=== PATIENT | male | born 1975 | race Asian ===

== ENCOUNTER 2020-06-24 11:16 | Day surgery (SDC) | payer OTHER ==
[2020-06-22 09:13] VITALS: BMI 29.0
--- OUTSIDE RECORDS SUMMARY | 2020-06-24 14:53 | XMS ---
:1975 Demographics Address [address] [place] [address] Mobile Phone Preferred Language en-US Marital Status Declined to Specify Mosque Affiliation [employer] Declined to Specify Author Organization [facility] Support Name Relationship Address Phone SE Unavailable Unavailable Unavailable JUDI ANDRADE [address] [place] [address] Re-disclosure Warning The records that you are about to access may contain information from federally- assisted alcohol or drug abuse programs. If such information is present, then the following federally mandated warning applies: This information has been disclosed to you from records protected by federal confidentiality rules (42 CFR part 2). The federal rules prohibit you from making any further disclosure of this information unless further disclosure is expressly permitted by the written consent of the person to whom it pertains or as otherwise permitted by 42 CFR part 2. A general authorization for the release of medical or other information is NOT sufficient for this purpose. The Federal rules restrict any use of the information to criminally investigate or prosecute any alcohol or drug abuse patient.The records that you are about to access may contain highly sensitive health information, the redisclosure of which is protected by Article 27-F of the [facility] Public Health law. If you continue you may haveaccess to information: Regarding HIV / AIDS; Provided by facilities licensed or operated by the [facility] Office of Mental Health; or Provided by the [facility] Office for People With Developmental Disabilities. If such information is present, then the following [facility] mandated warning applies: This information has been disclosed to you from confidential records which are protected by state law. State law prohibits you from making any further disclosure of this information without the specific written consent of the person to whom it pertains, or as otherwise permitted by law. Any unauthorized further disclosure in violation of state law may result in a fine or fpc sentence or both. A general authorization for the release of medical or other information is NOT sufficient authorization for further disclosure. Insurance Providers Payer name Policy type Policy ID Covered Covered alliance party's Policy P tana / Coverage alliance party ID relationship to [employer] Inf ormation type parker HIP O [id number] SP [id number] 1 EMBLEM [id number] HEALTH VIP 1 (HMO) HIP O [id number] SP [id number] 01 1 Problems, Conditions, and Diagnoses Code Display Name Description Problem Type Effective Dates Data Source(s) D64.9 Anemia, ANEMIA, Problem 06/09/2020 [facility] ([facility] unspecified UNSPECIFIED 12:00:00 AM EDT [facility], ) Surgeries/Procedures Procedure Description Date Indications Data Source(s) Documentation of current 06/09/2020 [facility] ([facility] medications (procedure) 12:00:00 AM EDT [facility]) BRIEF COMMUNICATION 06/09/2020 [email or web address] AM [facility], ) Results ID Date Data Source [id number] 06/21/2020 10:04:00 AM EDT [facility] Name Value Range Interpretation Description Data Sup porting Code Source(s) Document(s ) SARS [facility] coronavirus 2 RNA This lab was ordered by JAYDEN pani[facility] and reported by [facility]. ID Date Data Source [id number] 06/13/2020 11:30:00 AM EDT [facility] Name Value Range Interpretation Description Data Sup porting Code Source(s) Document(s ) SARS [facility] coronavirus 2 RNA This lab was ordered by JAY[facility] paniagua [facility] and reported by [facility]. Procedure Social History Code Duration Value Status Description Data Source(s ) Smoking 06/18/2020 Unknown if ever completed Unknown if ever MEDG EN ([employer] 12:00:00 AM EDT smoked smoked [facility], )
[2020-06-24 16:58] VITALS: TEMP 98.5
[2020-06-24 17:04] VITALS: BP 146/97; PULSE 67
--- NOTE | 2020-06-26 19:04 | PATH ---
Surgical Pathology Report Patient Name: GARRETT ANDRADE [facility]. Rec. #: [id number] /Age/Gender: 1975 (Age: 44) / M Account: [id number] Location: [facility] Taken: 06/24/2020 Received: 06/24/2020 Reported: 06/26/2020 Physicians: Carole Rivera M.D. Specimen(s) Received A: SECOND PORTION DUODENUM B: ANTRUM C: GE JUNCTION Clinical History GI bleed Postoperative diagnosis: Gastritis Final Diagnosis A. DUODENUM, SECOND PORTION, BIOPSY: DUODENAL MUCOSA WITH SMALL LYMPHOID AGGREGATE. B. GASTRIC ANTRUM, BIOPSY: GASTRIC ANTRAL MUCOSA WITH MILD CHRONIC GASTRITIS. IMMUNOHISTOCHEMICAL STAIN FOR H. PYLORI IS NEGATIVE. C. GE JUNCTION, BIOPSY: SQUAMOCOLUMNAR MUCOSA WITH MILD CHRONIC INFLAMMATION AND CHANGES OF MILD REFLUX ESOPHAGITIS. NO INTESTINAL METAPLASIA OR DYSPLASIA IDENTIFIED. Positive and negative controls (internal if applicable) show appropriate results. Electronically Signed Carole Krishnamurthy M.D. Gross Description A. Received in formalin, labeled "second portion duodenum" is a byrd, irregular portion of soft tissue measuring 0.3 cm. in greatest dimension. The specimen is submitted in toto in one cassette. B. Received in formalin, labeled "gastric antrum" is a byrd, irregular portion of soft tissue measuring 0.4 cm. in greatest dimension. The specimen is submitted in toto in one cassette. C. Received in formalin, labeled "GE junction" is a byrd, irregular portion of soft tissue measuring 0.2 cm. in greatest dimension. The specimen is submitted in toto in one cassette. MLSZ/06/25/2020 sanml/06/25/2020
== END 2020-06-24 13:40 | disposition home or self-care (01) ==
LOC: FASU-ENDO 11:16
PROVIDERS: ATTEND Internal Medicine Gastroenterology
PROC: 0DB68ZX Excision of Stomach, Via Natural or Artificial Opening Endoscopic, Diagnostic (ICD-10-PCS; 2020-06-24)
PROC: 0DB48ZX Excision of Esophagogastric Junction, Via Natural or Artificial Opening Endoscopic, Diagnostic (ICD-10-PCS; 2020-06-24)
PROC: 0DB98ZX Excision of Duodenum, Via Natural or Artificial Opening Endoscopic, Diagnostic (ICD-10-PCS; principal; 2020-06-24 12:41)
DX: K92.1 Melena (principal); K29.50 Unspecified chronic gastritis without bleeding; K21.0 Gastro-esophageal reflux disease with esophagitis; K31.9 Disease of stomach and duodenum, unspecified
CPT/HCPCS: 88305-TC; 88342-TC

== ENCOUNTER 2020-08-26 10:49 | Day surgery (SDC) | payer OTHER ==
[2020-08-20 16:14] VITALS: BMI 29.0
[2020-08-26] MEDS ORDERED: LIDOCAINE HCL/PF 2% SDV 5ML VIAL ONE (12:14)
[2020-08-26] MEDS ORDERED: PROPOFOL 20 ML ONE ×3 (12:14)
[2020-08-26 13:20] VITALS: BP 120/82; PULSE 64; TEMP 97.6
== END 2020-08-26 13:19 | disposition home or self-care (01) ==
LOC: FASU-ENDO 10:49
PROVIDERS: ATTEND Internal Medicine Gastroenterology
PROC: 0DJD8ZZ Inspection of Lower Intestinal Tract, Via Natural or Artificial Opening Endoscopic (ICD-10-PCS; principal; 2020-08-26 12:16)
DX: Z12.11 Encounter for screening for malignant neoplasm of colon (principal); K64.1 Second degree hemorrhoids; K57.30 Diverticulosis of large intestine without perforation or abscess without bleeding